=== PATIENT | male | born 1990 | race Hispanic/Latino ===

== ENCOUNTER 2020-02-16 22:08 | Inpatient (IN) ==
[~2020-02-16 22:08] MED LIST: Iopamidol-370 76% 500 ML 1 ML ONE
[2020-02-16] MEDS ORDERED: Adacel (T-DAP) 0.5 ML SYRINGE ONE (22:12)
[2020-02-16 22:27] LABS: #Basophils 0.1 thou/uL (0.0-0.2); #Eosinphils 0.1 thou/uL (0.0-0.7); #Lymphocytes 2.3 thou/uL (1.20-3.40); #Monocytes 0.4 thou/uL (0.11-0.59); #Neutrophils 3.6 thou/uL (1.40-6.50); %Basophils 1.8 % (0.0-1.0); %Eosinophils 1.3 % (0.0-10.0); %Lymphocytes 35.1 % (21.0-51.0); %Monocytes 6.1 % (0.0-10.0); %Neutrophils 55.7 % (42.0-75.0); Hemoglobin 15.2 g/dL (14.0-18.0); Mean Corpuscular HGB CONC 34.9 g/dL (32.0-36.0); Mean Corpuscular Hemoglobin 33.9 pg (27.0-31.0); Mean Corpuscular Volume 97.3 fL (78.0-98.0); Mean Platelet Volume 9.4 fL (7.4-10.4); Platelet Count 159 thou/uL (130-400); RBC Distribution Width 11.2 % (11.5-14.5); Red Blood Cell (RBC) Count 4.48 mill/uL (4.70-6.10); White Blood Cell (WBC) Count 6.4 thou/uL (4.8-10.8)
[2020-02-16 22:33] LABS: PTT 26.2 sec (22.9-36.1); Prothrombin Time 13.4 sec (12.0-14.7)
[2020-02-16] MEDS ORDERED: Ketorolac Tromethamine 30 MG/ML VIAL ONE (22:33)
[2020-02-16 22:41] LABS: ALT (SGPT) 16 U/L (8-55); AST (SGOT) 26 U/L (5-34); Albumin 3.9 g/dL (3.5-5.0); Alkaline Phosphatase 49 U/L (40-110); Anion Gap 13 mmol/L (10-20); BUN (Urea Nitrogen) 17 mg/dL (8.9-20.6); Bilirubin, Total 0.6 mg/dL (0.2-1.2); Calc. Creatinine Clearance 0 mL/min (70-130); Calcium 8.4 mg/dL (7.8-10.44); Carbon Dioxide 21 mmol/L (22-29); Chloride 108 mmol/L (98-107); Estimated GFR-MDRD Greater than 90; Globulin 2.7 g/dL (2.4-3.5); Glucose 110 mg/dL (70-105); Potassium 3.4 mmol/L (3.5-5.1); Protein, Total 6.6 g/dL (6.0-8.3); Sodium 139 mmol/L (136-145)
[2020-02-16] MEDS ORDERED: HYDROmorphone 0.5 MG/0.5 ML SYRINGE ONE ×2 (22:46→23:53)
[2020-02-16] MEDS ORDERED: Dextrose 5% in Water 1,000 ML IV PRN (22:51)
[2020-02-16] MEDS ORDERED: Dextrose 50% Abboject 50 ML SYRINGE SLOW IVP PRN (22:51)
[2020-02-16] MEDS ORDERED: Ondansetron PF 4 MG/2 ML Vial IVP PRN (22:51)
[2020-02-16 22:52] LABS: Bacteria/HPF None Seen HPF (None Seen); Bilirubin Negative (Negative); Blood, Urine Negative (Negative); Clarity Clear (Clear); Glucose, Urine (Dipstick) Normal (Negative); Ketone, Urine Negative (Negative); Leukocyte Negative Leu/uL (Negative); Mucous/LPF 1+ LPF (<2+); Nitrite Negative (Negative); Protein, Urine (Dipstick) 20 mg/dL (Neg-Trace); RBC/HPF 0-3 HPF (0-3); Specific Gravity, Urine 1.028 (1.002-1.036); Squamous Epithelial None Seen HPF (0-3); Urobilinogen Normal mg/dL (Less than 2); WBC/HPF None Seen HPF (0-3)
--- NOTE | 2020-02-16 22:58 | CT ---
EXAM: CT of the chest with IV contrast CT of the abdomen and pelvis with IV contrast HISTORY: Trauma. Patient hit by a bull in left flank. COMPARISON: None FINDINGS: CT CHEST: Mediastinum: Heart is normal in size without focal cardiac abnormality. No hilar or mediastinal lymph adenopathy. No mediastinal hemorrhage. Vessels: There are no findings to suggest an aortic injury. Lungs: Clear without consolidation. There is mild dependent bibasilar atelectasis. Calcified granulom a is seen at the right lung base. Pleural space: No pneumothorax or pleural effusion. Osseous structures: There are nondisplaced rib fractures involving the left anterolateral seventh as well as the lateral left eighth, ninth, and 10th ribs with a fracture involving the posterolateral left 11th rib. There is a remote fracture involving the left anterolateral fourth rib. No additional fracture is seen. Chest wall: There is subcutaneous edema and soft tissue swelling along the left lateral chest wall. CT ABDOMEN/PELVIS: Liver: A subcentimeter fat density structure seen in a subcapsular location along the posterior segme nt right hepatic lobe which could represent a small hepatic lipoma. Liver otherwise has a normal CT appearance. Gallbladder: Within normal limits for CT appearance. Spleen: There is a prominent cleft within the anterior spleen, and this does not have the appearance of a splenic injury. No adjacent perisplenic inflammatory changes or fluid is seen. Pancreas: Within normal limits. Adrenal glands: Within normal limits. Kidneys: Within normal limits. Urinary bladder: Decompressed with Rose catheter in place. Vessels: Abdominal aorta is normal in caliber without findings to suggest an aortic injury. Pelvis: No focal mass or abnormality. Reproductive organs: Within normal limits for the patient's age. Peritoneum: No free air or free fluid. Retroperitoneum: No lymphadenopathy. Abdominal wall: There is a prominent soft tissue defect involving the subcutaneous soft tissues at th e lateral left flank with this defect measuring 5.4 cm in AP dimensions. There is subcutaneous emphysema seen about the left lateral aspect of the abdomen which extends into the lower chest subcut aneous soft tissues. There is also a defect seen within the left lateral abdominal oblique musculature in this region. No radiopaque foreign body is seen. Osseous structures: No acute fracture identified. There is a minimal wedge-shaped deformity involving the L1 vertebral body. This may be secondary to a minimal wedge-shaped compression fracture of indeterminate age. The remaining vertebral body heights of the thoracic and lumbar spine are within normal limits, and no additional fracture or subl uxation is seen involving the thoracic or lumbar spine. IMPRESSION: 1. Large soft tissue defect lateral left flank with subcutaneous emphysema as well as defect in the l ateral abdominal oblique musculature. 2. Nondisplaced left lower rib fractures involving the left seventh through 11th ribs. 3. No pneumothorax or pleural effusion is seen. 4. No free intraperitoneal gas or free fluid is seen in the abdomen. 5. Minimal wedge-shaped deformity involving the L1 vertebral body. This may represent an age-indeterm inate minimal compression fracture of the L1 vertebral body. 6. Above findings were discussed with Dr. Augustin on 02/16/2020 at 2234 hours.
[2020-02-16] MEDS ORDERED: Rib Fracture Protocol PO SCH (23:00)
[2020-02-16] MEDS ORDERED: HYDROmorphone 2 MG/ML VIAL SLOW IVP SCH (23:15)
[2020-02-16] MEDS ORDERED: Cyclobenzaprine 10 MG TAB PO PRN ×2 (23:15→23:30)
--- NOTE | 2020-02-16 23:33 | RAD ---
EXAM: CHEST ONE VIEW HISTORY: Level 1 trauma. Hit by bull. COMPARISON: None FINDINGS: The cardiac silhouette and pulmonary vasculature is within normal limits. Lung apices are excluded fr om view. No pleural effusion or consolidation is seen within the lungs. While no obvious pneumothorax is seen on this supine chest x-ray, lung apices are excluded from view. There is a nondi splaced fracture involving the lateral left ninth rib. A backboard is in place overlying the chest. IMPRESSION: 1. No acute cardiopulmonary process. 2. Exclusion of the lung apices. 3. Nondisplaced fracture lateral left ninth rib.
[2020-02-16] MEDS ORDERED: Fentanyl 100 MCG/2 ML VIAL SLOW IVP SCH (23:45)
[2020-02-16] MEDS ORDERED: Fentanyl 100 MCG/2 ML VIAL ONE (23:53)
[2020-02-17] MEDS: Acetaminophen 500 MG TAB PO SCH ×3 (00:23→11:38)
[2020-02-17] MEDS: traMADol HCl 50 MG TAB PO SCH ×3 (00:24→11:38)
[2020-02-17] MEDS ORDERED: Bupivacaine PF 0.5% 30 ML VIAL ONE (00:34)
[2020-02-17] MEDS ORDERED: Bupivacaine 0.25% HCL 30 ML VIAL ONE (00:34)
[2020-02-17] MEDS ORDERED: Fentanyl 100 MCG/2 ML VIAL ONE ×3 (01:11→01:44)
[2020-02-17] MEDS ORDERED: HYDROmorphone 2 MG/ML VIAL SLOW IVP PRN (01:39)
[2020-02-17] MEDS ORDERED: PACU-Morphine 4MG/ML VIAL SLOW IVP PRN (01:39)
[2020-02-17] MEDS ORDERED: Ondansetron HCl/PF 4 MG/2 ML Vial IVP PRN (01:39)
[2020-02-17] MEDS ORDERED: Promethazine HCl 25 MG/ML VIAL SLOW IVP PRN (01:39)
[2020-02-17] MEDS ORDERED: Promethazine HCl 25 MG/ML VIAL IM PRN (01:39)
--- NOTE | 2020-02-17 02:26 | HP ---
HISTORY OF PRESENT ILLNESS: Mr. Abdullahi is a 29-year-old man, who was helping a friend at a rodeo. They were trying to rope a bull and were charged by the animal. The patient bumped his head during this tahmina. He was subsequently gored by the bull with penetrating trauma to his left flank. The patient suffered no loss of consciousness. He was transported via ground EMS to [facility] arriving within 1 hour of the incident. He remained with a More Coma Scale of 15. The patient was complaining of severe 10/10 left flank and left chest wall pain, which was limiting his ability to take a deep breath. Otherwise, the patient denies any dyspnea or syncope. He clearly denies any abdominal pain. PAST MEDICAL HISTORY: Denies any previous medical problems. PAST SURGICAL HISTORY: The patient denies any previous surgeries. SOCIAL HISTORY: Remodels homes for a living. He denies any cigarette smoking, ethanol, or illicit drug abuse. FAMILY HISTORY: Denies any family history of diabetes mellitus, heart disease, hypertension, or cancer. CURRENT MEDICATIONS: None. ALLERGIES: THE PATIENT DENIES ANY KNOWN DRUG ALLERGIES. REVIEW OF SYSTEMS: Ten-point review of systems essentially unremarkable except as stated in past medical history and chief complaint. PHYSICAL EXAMINATION: GENERAL: This reveals a 29-year-old normally developed man, who is otherwise coherent and interactive, appears stated age. The patient is alert and oriented x3. Appears to be in acute distress secondary to severe left flank and left chest wall pain. VITAL SIGNS: Initial vital signs include blood pressure 129/92, pulse 76, respiratory rate is 20, temperature 98.4 degrees Fahrenheit, oxygen saturation 93% on room air. Oxygen saturation improved with 2 L of nasal cannula oxygen to 99% . HEENT: He has superficial forehead abrasion. Otherwise, his head is normocephalic. Pupils are equal, round, reactive to light and accommodation. Nares are patent , no discharge. Midface is stable. No gross deformities or step-offs are present. He has normal bite. NECK: Cervical spine which was previously immobilized in a C-collar was maintained in neutral position during my examination. He has no cervical neck tenderness to palpation, passive or active range of motion. His cervical collar was discontinued. CHEST: Chest wall is stable, although he has left lateral chest wall diminished to palpation. There is subcutaneous emphysema palpatory in the left lateral flank and chest wall. HEART: Reveals regular rate and rhythm. No murmurs or gallops auscultated. LUNGS: Clear to auscultation bilaterally. Breathing, regular and nonlabored. ABDOMEN: Soft, nontender, nondistended. He has point tenderness in the left flank associated with large soft tissue defect, which measures 7 x 5 x 3 cm and appears to tunnel superiorly. There was venous oozing from the wound, but no active pulsatile bleeding or any purulent drainage. He clearly has no peritoneal signs on examination. GENITOURINARY: Reveals bilateral descended testicles. Normal male genitalia. He has no blood in his urethral meatus. There was no ecchymosis or hematoma of the scrotum or perineum. Due to the position of the left flank wound, suspicions for any genitourinary injury from the penetrating trauma, a Rose catheter was placed, which returned clear torsten urine. MUSCULOSKELETAL: Once log-rolled, thoracic and lumbar spine were palpated free of any abnormalities. The patient did have some tenderness in the lower back, which is lateral to midline. LABORATORY FINDINGS: Today include a CBC with 6400 white blood cells, hemoglobin and hematocrit 15.2 and 43.6 respectively, platelet count is 159,000. Metabolic profile: Sodium 139, potassium 3.4, chloride is 108, bicarb is 21, BUN is 17, creatinine 0.93, glucose is 110, total bilirubin 0.6, AST and ALT 26 and 16 respectively. Alkaline phosphatase is 49. PTT and INR 26.2 seconds and 1.0 respectively. I have reviewed all radiographic studies, which include a chest x-ray is unremarkable for any hemo or pneumothorax. CT scan of the chest is remarkable for multiple left-sided rib fractures, involves ribs 4, 7 through 11 without any associated hemo or pneumothorax. CT scan of the abdomen and pelvis is unremarkable for any acute intraabdominal pathology. There is, however, a large soft tissue defect in the left flank with associated subcutaneous emphysema which tracks up to the chest. There is also disruption of the lateral abdominal oblique musculature. There is no evidence of any extension into the peritoneal or retroperitoneal cavities. IMPRESSION: 1. Penetrating trauma to the left flank by a bull. 2. Large penetrating left flank soft tissue wound. 3. Laceration of left lateral abdominal oblique musculature. 4. Multiple left rib fractures involving ribs 4, 7 through 11. PLAN: 1. Initiate rib fracture protocol. 2. The patient will be taken to the operating room for I and D of this presumably dirty wound. The above findings and plan have been discussed with the patient. 3. I have advised the patient of the risks and benefits of the surgery to include the possibility of delayed infection and abnormal scarring. The patient indicates understanding of information given. I have answered his questions. This information was provided to the patient through a [email or web address] administrator. The patient indicates understanding of information given. He has granted consent for this admission and proposed surgical intervention. Job ID: [id number] [facility]
--- NOTE | 2020-02-17 04:13 | OP ---
DATE OF PROCEDURE: 02/17/2020 PREOPERATIVE DIAGNOSES: 1. Penetrating trauma to the left flank by a bull. 2. 7 x 5 x 3 cm left flank soft tissue wound. 3. Left lateral abdominal oblique muscle laceration. POSTOPERATIVE DIAGNOSES: 1. Penetrating trauma to the left flank by a bull. 2. 7 x 5 x 3 cm left flank soft tissue wound. 3. Left lateral abdominal oblique muscle laceration. OPERATION PERFORMED: 1. Incision and drainage and washout of large left flank wound. 2. Repair of lacerated left lateral abdominal oblique musculature. 3. Wound closure. ANESTHESIA: General endotracheal. ESTIMATED BLOOD LOSS: 10 mL. FLUIDS GIVEN: 800 mL crystalloids. COUNTS: Sponge and instrument counts were verified as correct x2. COMPLICATIONS: None apparent at the time of operation. INDICATIONS FOR OPERATION: This is a 29-year-old man, who was gored by a bull with a puncturing trauma to the left flank. The wound has left him with a large soft tissue defect. He was brought to the operating room for washout and closure. Findings are consistent with a complete laceration of the left lateral oblique musculature of the flank. There was only minimum tunneling superiorly. DESCRIPTION OF PROCEDURE: Informed consent was obtained from the patient who was brought to the operating room and placed in supine position. Following general anesthesia, the patient was turned with left side up. The wound was sterilely prepped and draped in usual fashion. The wound was pulse lavaged with 5000 mL of saline. Hemostasis was achieved using cautery. The nonviable tissue was sharply debrided using cautery. The lacerated lateral oblique muscles were reapproximated using interrupted sutures of 2-0 of Vicryl. Subcutaneous tissues were approximated using interrupted sutures of 2-0 Vicryl. The wound bed was copiously infiltrated with 0.5% Marcaine. Skin edges were then closed using brittney. Sterile dressings were applied. The patient tolerated the operation without any apparent complication and was returned to recovery room in satisfactory condition. Job ID: [id number]
[2020-02-17 05:27] LABS: #Lymphocytes 0.6 thou/uL (1.20-3.40); #Monocytes 0.2 thou/uL (0.11-0.59); #Neutrophils 9.3 thou/uL (1.40-6.50); %Basophils 0.1 % (0.0-1.0); %Lymphocytes 5.6 % (21.0-51.0); %Monocytes 1.6 % (0.0-10.0); %Neutrophils 92.7 % (42.0-75.0); Mean Corpuscular HGB CONC 35.8 g/dL (32.0-36.0); Mean Corpuscular Hemoglobin 34.5 pg (27.0-31.0); Mean Corpuscular Volume 96.2 fL (78.0-98.0); Mean Platelet Volume 9.7 fL (7.4-10.4); Platelet Count 137 thou/uL (130-400); RBC Distribution Width 11.1 % (11.5-14.5); Red Blood Cell (RBC) Count 4.65 mill/uL (4.70-6.10)
[2020-02-17] MEDS: Ibuprofen 800 MG TAB PO SCH ×2 (05:37→13:56)
[2020-02-17 05:40] VITALS: BMI 22.2
[2020-02-17] MEDS ORDERED: Enoxaparin Sodium 40 MG/0.4 ML SYRINGE SC SCH (09:00)
[2020-02-17] MEDS ORDERED: Gabapentin 300 MG CAP PO SCH (09:00)
[2020-02-17 11:38] VITALS: BP 119/72; TEMP 98.6
[2020-02-17] MEDS ORDERED: Dexamethasone 20 MG/5 ML VIAL ONE (13:43)
[2020-02-17] MEDS ORDERED: PROPOFOL 200 MG/20 ML VIAL ONE (13:43)
[2020-02-17] MEDS ORDERED: Ondansetron PF 4 MG/2 ML Vial ONE (13:43)
[2020-02-17] MEDS ORDERED: Glycopyrrolate 0.2 MG/ML 5 ML SYRINGE ONE (13:43)
[2020-02-17] MEDS ORDERED: Ketorolac Tromethamine 30 MG/ML VIAL ONE (13:43)
[2020-02-17] MEDS ORDERED: Rocuronium Bromide 10 MG/ML (10ML VIAL) ONE (13:43)
[2020-02-17] MEDS ORDERED: Lidocaine 1% PF 5 ML VIAL ONE (13:43)
--- NOTE | 2020-02-17 19:55 | DIS ---
DATE OF ADMISSION: 02/16/2020 DATE OF DISCHARGE: 02/17/2020 ADMISSION DIAGNOSES: Gored by bull penetrating trauma to left flank, left flank deep soft tissue wound and abrasion, and left-sided ribs 4, 7, and 11 fractures. DISCHARGE DIAGNOSES: Gored by bull penetrating trauma to left flank, left flank deep soft tissue wound and abrasion, and left-sided ribs 4, 7, and 11 fractures. CONSULTING PHYSICIAN: None. PROCEDURES: The patient went to the OR on February 16, 2020 and had an incision and drainage and washout of the large left flank wound, repair of laceration of the left lateral abdominal oblique musculature, and wound closure. HOSPITAL COURSE: The patient is a 29-year-old male, presented to the Emergency Department via EMS after he was gored by a bull with a penetrating injury. He has left rib fractures, but was taken to the OR for evaluation and washout of a left flank injury. He was admitted to the hospital, on the next day he tolerated a regular diet. He was discharged with pain medications. At the time of discharge, his pain is well controlled. He was tolerating a diet and voiding without difficulties. He was discharged with instructions to follow up with two weeks and a chest x-ray. DISCHARGE DISPOSITION: Home. DISCHARGE CONDITION: Satisfactory. PHYSICAL EXAMINATION: VITAL SIGNS: Temperature 98.6, pulse 90, respirations 20, oxygen saturation 99% on room air, and blood pressure 119/72. GENERAL: Well-appearing young male, lying in bed with no signs of acute distress. PULMONARY: Equal chest rise and fall. No signs of acute respiratory distress. CARDIAC: Regular rate and rhythm. DISCHARGE INSTRUCTIONS: The patient was discharged home. Activity, as tolerated. Regular diet. No PT needs. Incentive spirometry. DISCHARGE MEDICATIONS: Include; 1. Tylenol. 2. Flexeril. 3. Gabapentin. 4. Ibuprofen. 5. Tramadol. FOLLOWUP APPOINTMENTS: The patient is to follow up with Dr. Augustin on February 25 at 2 p.m. in clinic. He is to complete a chest x-ray before followup. This is a summary of the patient's hospitalization. For full details, please see his medical record in its entirety. The patient was seen and evaluated by myself and Dr. Augustin on the day of discharge. The [facility] was attempted to be accessed, but the left side was down. Subsequently, the patient was discharged on medications that were used to treat acute traumatic pain and acute postoperative pain during his hospitalization. Job ID: [id number]
== END 2020-02-17 14:44 | disposition home or self-care (01) | DRG 580 ==
LOC: ERS 22:08 → SURG B 22:54
PROVIDERS: ADMIT Surgery; ATTEND Surgery
PROC: 0K9L0ZZ Drainage of Left Abdomen Muscle, Open Approach (ICD-10-PCS; principal; 2020-02-17)
PROC: 0KQL0ZZ Repair Left Abdomen Muscle, Open Approach (ICD-10-PCS; 2020-02-17)
DX: S39.021A Laceration of muscle, fascia and tendon of abdomen, initial encounter (principal); S22.42XA Multiple fractures of ribs, left side, initial encounter for closed fracture; W55.22XA Struck by cow, initial encounter
CPT/HCPCS: 36415; 71045; 71260; 74177; 80053; 81001; 85025; 85610; 85730; 86850; 86900; 86901; 90715; 94640; G0390; J0690; J1100; J1170; J1650; J1885; J2001; J2405; J2704; J3010; J7620; Q9967; S0020